=== PATIENT | female | born 2000 | race Caucasian/White ===

== ENCOUNTER 2019-08-18 14:59 | Outpatient (CLI) | payer OTHER, SELFPAY ==
--- NOTE | 2019-08-18 15:12 | XR_ITS ---
WS: [id number] XR foot LT min 3V* [id number] REASON FOR EXAM: LEFT FOOT PAIN FINDINGS: Mild hallux valgus changes. Line the remaining phalanges metatarsals and tarsals are normal . The calcaneus shows no abnormality . XR/XR foot LT min 3V* [id number] IMPRESSION: Hallux valgus changes.
== END 2019-08-18 15:00 | disposition home or self-care (01) ==
LOC: RAD 15:05
PROVIDERS: PCP Family Medicine; Visit Provider Nurse Practitioner Family
DX: M79.672 Pain in left foot (principal)
CPT/HCPCS: 73630

== ENCOUNTER → 2019-09-08 14:21 | Outpatient (BNVA) | payer OTHER, SELFPAY | PROVIDERS: PCP Family Medicine; Referring Provider Family Medicine; Visit Provider Podiatrist Foot & Ankle Surgery | DX: M79.672 Pain in left foot (principal) | CPT/HCPCS: 73630 ==

== ENCOUNTER → 2020-12-27 16:00 | Outpatient (BNVA) | payer OTHER, SELFPAY | PROVIDERS: PCP Family Medicine; Visit Provider Nurse Practitioner Women's Health | DX: Z01.419 Encounter for gynecological examination (general) (routine) without abnormal findings (principal); Z11.3 Encounter for screening for infections with a predominantly sexual mode of transmission; N92.6 Irregular menstruation, unspecified | CPT/HCPCS: 87491; 87591; 87661; 88175 ==

== ENCOUNTER 2021-03-09 16:37 | Emergency (ER) | payer OTHER, SELFPAY ==
--- NOTE | 2021-03-09 16:38 | W.ED.GENADLT ---
HPI - General Adult General: Chief complaint: Wound/Laceration Stated complaint: BLEEDING POST OP Time Seen by Provider: 03/09/21 16:38 History of Present Illness: HPI narrative: Ms Beal is a 20-year-old without significant past medical history who presents to the emergency department due to postoperative concern. 2 days ago she underwent tonsillectomy, expected postoperative course however earlier today started tasting blood and noticed mild amount of blood-tinged sputum. No significant emesis or massive bleed. Mild generalized malaise though improved with medication. No other signal change to health, exacerbating, or relieving factors. Review of Systems General: Reports: 10 or more systems reviewed and unremarkable except in HPI and below PFSH ED PFSH: Medical History No pertinent past medical history neg dx- htn,dm,thyroid,dvt/pe PCP: Dr. Brown Surgical History [place] teeth removed Family History Father Hypertension Family/Other Cancer MGGAunt Denies family history of Diabetes Family history of premature coronary artery disease Stroke Social History Smoking and tobacco status: never smoked Physical Exam Narrative: EXAM NARRATIVE: GENERAL/CONSTITUTIONAL - well-appearing. Nontoxic Eyes - PERRL, no conjunctival injection ENMT - Limited evaluation of posterior pharynx, no obvious bleeding. Moist mucous membranes NECK - trachea midline CARDIOVASCULAR - regular rate and rhythm. Normal peripheral perfusion RESPIRATORY -clear to auscultation bilaterally. ABDOMEN/GI - Nontender/Nondistended. MSK - Extremities without obvious deformity or tenderness to palpation SKIN - Warm, Dry NEURO - alert and appropriately oriented. Moves all extremities equally. Course ED course: - Patient was seen and evaluated by me at bedside -Vital signs obtained - Initial evaluation notable for clear sputum, no acute distress - evaluated by Dr Brink at bedside, cautery performed though no significant bleeding noted. - Given Dr. Brink's recommendations in conjugation with clinical exam including no active bleeding after cautery and normal vital signs no additional imaging warranted at this time. - Upon serial reexamination after treatment the patient was improved - The results of ED evaluation were discussed with the patient including prescriptions and/or symptomatic cares (if applicable) including appropriate and responsible use, followup plan, and return precautions. The patient verbalized understanding and felt safe for discharge. - Patient discharged in satisfactory condition. Vital Signs: Vital signs: Vital Signs Temperature 98.5 F 03/09/21 16:40 Pulse Rate 87 03/09/21 16:55 Respiratory Rate 17 03/09/21 16:55 Blood Pressure 140/81 03/09/21 16:55 Pulse Oximetry 98 03/09/21 16:55 MDM - General Adult Medical Records: Attestation: I reviewed the patient's medical records. Lab Data: Attestation: I reviewed the patient's lab results. Discharge Plan Discharge Patient Disposition: Home Clinical Impression: Status post tonsillectomy, Post-op bleeding Condition: Stable Prescriptions: No Action levonorg-eth estrad triphasic [Enpresse] 50-30 (6)/75-40 (5)/125-30(10) tablet 1 tab PO DAILY Qty: 84 RF: 3 amoxicillin-pot clavulanate 875-125 mg tablet RF: 0 amoxicillin 500 mg capsule RF: 0 Discharge Orders: Discharge ED (Routine); Ordered 03/09/21 Ordered By: Vipul Gutierrez Referrals: Andrez Brown, DO [Primary Care Provider] - Discharge Activity: Limit activity as instructed Patient Instructions: Tonsillectomy (DC) Activity Restrictions/Additional Instructions: Thank you for visiting the emergency department. You were seen and evaluated for bleeding post tonsillectomy. This was evaluated by Dr. Brink and treated. Based on his evaluation and ED evaluation you do not require inpatient management at this time. I will include generalized guidelines for post tonsillectomy however please follow all directions given by Dr Brink. Return to the emergency department for recurrent bleeding, lightheadedness, dizziness, inability to tolerate oral intake, uncontrolled pain, or anything else that you are concerned about feel needs emergency department evaluation. Coding Level of Care Code ED Correctional Officer for Nora Anna
[2021-03-09 16:40] VITALS: BP 140/81; PULSE 82; RESP 18; TEMP 36.9; O2SAT 98; BMI 22.1
--- NOTE | 2021-03-09 16:46 | PC.NURSE ---
Tonsilectomy on 03/07/[address] Brink. [place] bleeding in throat. Dr Brink requested pt come to the ER
--- NOTE | 2021-03-09 16:47 | PM.CONSULT ---
Providers/Reason For Consult Consulting Physician/Specialty*: Blake Brink MD Otolaryngology, Head & Neck Surgery Reason for Consult*: Post tonsillectomyu bleeding Primary Care Provider: Andrez Brown DO History of Present Illness History of Present Illness Juan Jose Beal is a 20 year old female who is POD #2 s/p bilateral tonsillectomy for recurrent tonsillitis. The patient noted the taste of blood in her mouth earlier today, and contacted me for advice. She presents to the [facility] ER for evaluation. The patient has normal post op pain, but is o/w without c/o. Review of Systems General: Reports: 10 or more systems reviewed and unremarkable except in HPI and below Meds/Allergies Home Medications and Allergies Home Medications Medication Instructions Recorded Confirmed Last Taken Type naproxen 500 mg tablet 500 mg PO BID 09/08/19 12/27/20 Unknown History l.norgest-eth.estradiol triphasic 1 tab PO DAILY #84 tab 12/27/20 12/27/20 Unknown Rx 50-30 (6)/75-40(5)/125-30(10) tablet Allergies Allergy/AdvReac Type Severity Reaction Status Date / Time No Known Allergies Allergy Unverified 03/09/21 16:40 PFSH Acute PFSH: Medical History No pertinent past medical history neg dx- htn,dm,thyroid,dvt/pe PCP: Dr. Brown Surgical History [place] teeth removed Family History Father Hypertension Family/Other Cancer MGGAunt Denies family history of Diabetes Family history of premature coronary artery disease Stroke Social History Smoking and tobacco status: never smoked Vitals/I&O/Wt Last Vital Signs Temp 98.5 F 03/09/21 16:40 Pulse 82 03/09/21 16:40 Resp 18 03/09/21 16:40 BP 140/81 03/09/21 16:40 Pulse Ox 98 03/09/21 16:40 Weight last 48 hrs Weight 68.039 kg Physical Exam Const: COMMON NORMALS: no acute distress and patient oriented x3 HENMT: COMMON NORMALS: normocephalic, atraumatic and hearing grossly normal bilaterally HEAD & SCALP: normocephalic and atraumatic FACE & SINUS: normal facial exam TEETH & GINGIVA: Yes other (Normal post tonsillectomy exam without noted bleeding bilaterally.) Eye: COMMON NORMALS: EOMs intact bilaterally, conjunctivae normal and no scleral icterus CONJUNCTIVA: Yes conjunctivae normal Neuro: COMMON NORMALS: patient oriented x3 A&P Additional A&P Information Impression: 20 yo wf who is POD #2 s/p bilateral tonsillectomy with mild post tonsillectomy bleeding Plan: - The patient is to continue her previously described post tonsillectomy care - I performed AgN03 cautery of the patient's right tonsillar fossa - Encourage oral fluid intake - F/U in Dr. Brink's office next week - Contact Dr. Brink for any other problems Consult Attestations Medical Necessity Statement: I was contacted for evaluation of the patient in the ER for post tonsillectomy bleeding Procedures Procedure Narrative Verbal informed consent was obtained; the patient's oral cavity was sprayed with Hurricaine spray, and the right tonsillar fossa was treated with AgN03 since this was the side she felt bleeding from; the patient tolerated the procedure well, and there were no complications. Coding Level of Care Code Acute Embossing Machine Operator Helper for Nora Anna
[2021-03-09 16:55] VITALS: BP 140/81; PULSE 87; RESP 17; O2SAT 98
== END 2021-03-09 16:58 | disposition home or self-care (01) ==
PROVIDERS: Emergency Provider Emergency Medicine; PCP Family Medicine
DX: K91.840 Postprocedural hemorrhage of a digestive system organ or structure following a digestive system procedure (principal)
CPT/HCPCS: 12345; 99282

== ENCOUNTER 2021-03-12 22:59 | Emergency (ER) | payer OTHER, SELFPAY ==
--- NOTE | 2021-03-12 23:00 | XRR_ITS ---
PROCEDURE INFORMATION: Exam: XR Chest Exam date and time: 03/12/2021 11:00 PM Age: 20 years old Clinical indication: Cough; Additional info: Coughing up blood after tonsillectomy on 03/07 TECHNIQUE: Imaging protocol: XR of the chest. Views: 1 view. COMPARISON: CR Thoracic Spine 3+ views* [id number] 08/26/2018 6:08 PM FINDINGS: Lungs: Unremarkable. No consolidation. Pleural spaces: Unremarkable. No pleural effusion. No pneumothorax. Heart/Mediastinum: Unremarkable. No cardiomegaly. Bones/joints: Unremarkable. XR/XR chest 1V portable [id number] IMPRESSION: No acute findings.
[2021-03-12 23:02] VITALS: BP 129/88; PULSE 121; RESP 21; TEMP 36.8; O2SAT 98; BMI 23.3
--- NOTE | 2021-03-12 23:19 | ED_ITS ---
Documented by User: EDGAR Lofton 03/13/21 00:44 HPI - Neck Pain/Injury General: Chief Complaint: Neck Pain/Injury Stated Complaint: coughing up blood post surgery Time Seen by Provider: 03/12/21 23:09 History of Present Illness: HPI Narrative: Patient is a 20-year-old female comes to the ED with post tonsillectomy bleeding. Patient had tonsillectomy done back on March 07. She was seen here in the ED on March [address] Rajput came and saw patient she was cleared stable for discharge home. Tonight she woke up and had some bleeding on the right side of her throat. Pain is minimal. Denies any fever, chills or vomiting. While here in the ED she feels like the bleeding has stopped. Associated symptoms: Denies headache(s) or nausea Review of Systems Const: Denies: fever(s), chills or fatigue Eyes: Denies: change in vision or eye discomfort ENMT: Reports: other (Post tonsillectomy bleeding); Denies: throat pain, odynophagia, nasal discharge or nasal congestion Card: Denies: chest pain, palpitations, edema, swelling of feet/ankles, dyspnea on exertion or orthopnea Resp: Denies: dyspnea, productive cough or non-productive cough GI: Denies: abdominal pain, nausea, vomiting, diarrhea, constipation or hematochezia : Denies: flank pain, dysuria or hematuria Musc: Denies: neck pain, back pain or extremity swelling Skin/Breast: Denies: rash or new lesions Neuro: Denies: headache(s), numbness in extremities or weakness in extremities PFS ED PFSH: Medical History No pertinent past medical history neg dx- htn,dm,thyroid,dvt/pe PCP: Dr. Brown Surgical History [place] teeth removed Family History Father Hypertension Family/Other Cancer MGGAunt Denies family history of Diabetes Family history of premature coronary artery disease Stroke Social History Smoking and tobacco status: never smoked Female Reproductive History: Date of last menstrual period: 02/15/21 Physical Exam Const: COMMON NORMALS: no acute distress, patient oriented x3, healthy appearing and alert GENERAL APPEARANCE: cooperative and comfortable HENMT: COMMON NORMALS: normocephalic HEAD & SCALP: normocephalic MOUTH: Normal oral and palatal mucosa present THROAT: posterior oropharynx normal and uvula midline OTHER: Status post tonsillectomy?right tonsil has blood clot present. No other active bleeding noted. Neck/C-Spine: COMMON NORMALS: supple GENERAL: Yes normal visual inspection Resp: COMMON NORMALS: normal respiratory effort, No retractions, No use of accessory muscles and clear to auscultation bilaterally AUSCULTATION: clear to auscultation bilaterally Cardio: COMMON NORMALS: regular rate, regular rhythm, S1 normal heart sound present, S2 normal heart sound present, No gallops present (Cardio), No clicks present (Cardio), No murmurs present (Cardio) and Peripheral pulses 2+ throughout RATE: regular rate RHYTHM: regular rhythm HEART SOUNDS: S1 normal heart sound present and S2 normal heart sound present PERIPHERAL PULSES: Peripheral pulses 2+ throughout GI: COMMON NORMALS: Normal to inspection, nondistended, normoactive bowel sounds present, Soft to palpation, non-tender and no masses PALPATION: Yes Soft to palpation : COMMON NORMALS: Yes no CVA tenderness BLADDER/KIDNEY EXAM: Yes no CVA tenderness Back/Pelvis: COMMON NORMALS: no CVA tenderness Neuro: COMMON NORMALS: patient oriented x3 and moves all extremities SEN SORIUM/ORIENTATION: Yes alert Course Consultations: Consultation #1: I contacted Dr. Rajput the ENT on-call and he also performed patient's tonsillectomy back on March 07. I told him that patient had a clot on the right tonsillar region. He was going to come in to the ED to see patient and evaluate them. Time: 23:35 Vital Signs: Vital signs: Vital Signs Temperature 98.2 F 03/12/21 23:02 Pulse Rate 121 H 03/12/21 23:02 Respiratory Rate 17 03/13/21 00:40 Blood Pressure 129/88 03/12/21 23:02 Pulse Oximetry 98 03/12/21 23:02 MDM - Neck Pain/Injury Lab Data: Attestation: I reviewed the patient's lab results. Labs: Lab Results 03/12/21 03/12/21 23:30 23:30 WBC 6.1 10^3/uL 10^3/ uL (4.0-10.0) RBC 4.93 10^6/uL 10^6 /uL (4.1-5.3) Hgb 14.9 g/dL g/dL (11.5-15.3) Hct 42.3 % % (37.0-47.0) MCV 85.8 fl fl (81-99) MCH 30.2 pg pg (28.0-34.0) MCHC 35.2 g/dL g/dL (30.0-36.0) RDW 13.4 % % (12.1-15.1) Plt Count 299 10^3/cmm 10^3 /cmm (130-400) MPV 9.9 fL fL (7.4-10.4) Neut % (Auto) 54.4 % % Lymph % (Auto) 36.0 % % Upson % (Auto) 8.4 % % Eos % (Auto) 0.5 % % Baso % (Auto) 0.5 % % Neut # (Auto) 3.30 10^3/uL 10^3 /uL (1.8-7.7) Lymph # (Auto) 2.2 10^3/uL 10^3/ uL (0.8-4.8) Upson # (Auto) 0.5 10^3/uL 10^3/ uL (0.2-0.9) Eos # (Auto) 0.0 10^3/uL 10^3/ uL (0.0-0.8) Baso # (Auto) 0.0 10^3/uL 10^3/ uL (0.0-0.1) Nucleated RBC % (a uto) 0 % % Nucleated RBCs # 0.0 /100WBC /100W BC Sodium Cancelled Potassium Cancelled Chloride Cancelled Carbon Dioxide Cancelled Anion Gap Cancelled BUN Cancelled Creatinine Cancelled GFR Calculation Cancelled Glucose Cancelled Calculated Osmolal ity Cancelled Calcium Cancelled Total Bilirubin Cancelled AST Cancelled ALT Cancelled Alkaline Phosphata se Cancelled Total Protein Cancelled Albumin Cancelled Globulin Cancelled Imaging Data^: CXR: Attestation: I personally reviewed and interpreted this imaging study as follows: Radiologist's impression: [facility] [id number] [place], [place] [id number] ReportSigned Patient: Juan Jose Beal AUnit #: [id number]: 2000Acct#:[id number]/Sex: 20 / FADM Date: 03/12/21Loc: ERRoom/Bed:Attending Dr: Ordering Provider/Ordering MD: Navid Mason MD Date of Service: 03/12/21 Procedure(s): XR chest 1V portable [id number] Accession Number(s): [id number] Report Number: [id number] PROCEDURE INFORMATION: Exam: XR Chest Exam date and time: 03/12/2021 11:00 PM Age: 20 years old Clinical indication: Cough; Additional info: Coughing up blood after tonsillectomy on 03/07 TECHNIQUE: Imaging protocol: XR of the chest. Views: 1 view. COMPARISON: CR Thoracic Spine 3+ views* [id number] 08/26/2018 6:08 PM FINDINGS: Lungs: Unremarkable. No consolidation. Pleural spaces: Unremarkable. No pleural effusion. No pneumothorax. Heart/Mediastinum: Unremarkable. No cardiomegaly. Bones/joints: Unremarkable. XR/XR chest 1V portable [id number] IMPRESSION: No acute findings. Dictated By:Juan Becerril MDSigned By:Juan Becerril MDSigned Date/Time:03/13/21 0009DD/ 2300 Discharge Plan Discharge Patient Disposition: Home Clinical Impression: Post-tonsillectomy hemorrhage Condition: Stable Prescriptions: No Action naproxen 500 mg tablet 500 mg PO BID RF: 0 levonorg-eth estrad triphasic [Enpresse] 50-30 (6)/75-40 (5)/125-30(10) tablet 1 tab PO DAILY Qty: 84 RF: 3 Discharge Orders: Discharge ED (Routine); Ordered 03/13/21 Ordered By: Navid Mason Referrals: Blake Brink MD [Physician] - 1-3 days Andrez Brown DO [Primary Care Provider] - Discharge Diet: Advance as tolerated Discharge Activity: Resume usual activity Patient Instructions: Tonsillectomy (DC) Coding Level of Care Code ED Hemmer Lockstitch for Chg Fwd Exam Comprehensive Documented by User: Naivd Mason MD 03/13/21 00:37 HPI - Neck Pain/Injury General: Chief Complaint: Neck Pain/Injury Stated Complaint: coughing up blood post surgery Time Seen by Provider: 03/12/21 23:09 PFSH ED PFSH: Medical History No pertinent past medical history neg dx- htn,dm,thyroid,dvt/pe PCP: Dr. Brown Surgical History [place] teeth removed Family History Father Hypertension Family/Other Cancer MGGAunt Denies family history of Diabetes Family history of premature coronary artery disease Stroke Social History Smoking and tobacco status: never smoked Course Vital Signs: Vital signs: Vital Signs Temperature 98.2 F 03/12/21 23:02 Pulse Rate 121 H 03/12/21 23:02 Respiratory Rate 17 03/13/21 00:40 Blood Pressure 129/88 03/12/21 23:02 Pulse Oximetry 98 03/12/21 23:02 MDM - Neck Pain/Injury MDM Narrative: Medical decision making narrative: Patient was seen in the ER by Dr. Rajput he had cauterized the bleeding states she is stable for discharge I went and evaluated her again bleeding has stopped she has follow-up with him on Friday she is to follow-up as scheduled return if she has any more bleeding she understands agrees to plan. Lab Data: Labs: Lab Results 03/12/21 03/12/21 23:30 23:30 WBC 6.1 10^3/uL 10^3/ uL (4.0-10.0) RBC 4.93 10^6/uL 10^6 /uL (4.1-5.3) Hgb 14.9 g/dL g/dL (11.5-15.3) Hct 42.3 % % (37.0-47.0) MCV 85.8 fl fl (81-99) MCH 30.2 pg pg (28.0-34.0) MCHC 35.2 g/dL g/dL (30.0-36.0) RDW 13.4 % % (12.1-15.1) Plt Count 299 10^3/cmm 10^3 /cmm (130-400) MPV 9.9 fL fL (7.4-10.4) Neut % (Auto) 54.4 % % Lymph % (Auto) 36.0 % % Upson % (Auto) 8.4 % % Eos % (Auto) 0.5 % % Baso % (Auto) 0.5 % % Neut # (Auto) 3.30 10^3/uL 10^3 /uL (1.8-7.7) Lymph # (Auto) 2.2 10^3/uL 10^3/ uL (0.8-4.8) Upson # (Auto) 0.5 10^3/uL 10^3/ uL (0.2-0.9) Eos # (Auto) 0.0 10^3/uL 10^3/ uL (0.0-0.8) Baso # (Auto) 0.0 10^3/uL 10^3/ uL (0.0-0.1) Nucleated RBC % (a uto) 0 % % Nucleated RBCs # 0.0 /100WBC /100W BC Sodium Cancelled Potassium Cancelled Chloride Cancelled Carbon Dioxide Cancelled Anion Gap Cancelled BUN Cancelled Creatinine Cancelled GFR Calculation Cancelled Glucose Cancelled Calculated Osmolal ity Cancelled Calcium Cancelled Total Bilirubin Cancelled AST Cancelled ALT Cancelled Alkaline Phosphata se Cancelled Total Protein Cancelled Albumin Cancelled Globulin Cancelled Discharge Plan Discharge Patient Disposition: Home Clinical Impression: Post-tonsillectomy hemorrhage Condition: Stable Prescriptions: No Action naproxen 500 mg tablet 500 mg PO BID RF: 0 levonorg-eth estrad triphasic [Enpresse] 50-30 (6)/75-40 (5)/125-30(10) tablet 1 tab PO DAILY Qty: 84 RF: 3 Discharge Orders: Discharge ED (Routine); Ordered 03/13/21 Ordered By: Navid Mason Referrals: Blake Brink MD [Physician] - 1-3 days Andrez Brown DO [Primary Care Provider] - Discharge Diet: Advance as tolerated Discharge Activity: Resume usual activity Patient Instructions: Tonsillectomy (DC) Coding Level of Care Code ED Hemmer Lockstitch for Chg Fwd Exam Comprehensive
[2021-03-12 23:41] LABS: Basophils % 0.5 %; Eosinophils % 0.5 %; Hematocrit 42.3 % (37.0-47.0); Hemoglobin 14.9 g/dL (11.5-15.3); Lymphocytes # 2.2 10^3/uL (0.8-4.8); Mean Corpuscular HGB Conc 35.2 g/dL (30.0-36.0); Mean Corpuscular Hemoglobin 30.2 pg (28.0-34.0); Mean Corpuscular Volume 85.8 fl (81-99); Mean Platelet Volume 9.9 fL (7.4-10.4); Monocytes # 0.5 10^3/uL (0.2-0.9); Monocytes % 8.4 %; Neutrophils % 54.4 %; Nucleated Red Blood Cells % 0 %; Platelet Count 299 10^3/cmm (130-400); Red Blood Count 4.93 10^6/uL (4.1-5.3); Red Cell Distribution Width 13.4 % (12.1-15.1); White Blood Count 6.1 10^3/uL (4.0-10.0)
--- NOTE | 2021-03-13 00:10 | PM.CONSULT ---
Providers/Reason For Consult Consulting Physician/Specialty*: Blake Brink MD Otolaryngology, Head & Neck Surgery Reason for Consult*: Post tonsillectomy bleeding Requesting Physician: ER Attending Physician: Blake Brink MD Primary Care Provider: Andrez Brown DO History of Present Illness History of Present Illness Juan Jose Beal is a 20 year old female who is POD #5 s/p bilateral tonsillectomy who was well until one hour age when she developed spontaneous oral bleeding. The patient presents to the ER for treatment. Review of Systems General: Reports: 10 or more systems reviewed and unremarkable except in HPI and below Meds/Allergies Home Medications and Allergies Home Medications Medication Instructions Recorded Confirmed Last Taken Type naproxen 500 mg tablet 500 mg PO BID 09/08/19 12/27/20 Unknown History l.norgest-eth.estradiol triphasic 1 tab PO DAILY #84 tab 12/27/20 12/27/20 Unknown Rx 50-30 (6)/75-40(5)/125-30(10) tablet Allergies Allergy/AdvReac Type Severity Reaction Status Date / Time No Known Allergies Allergy Unverified 03/09/21 16:40 PFSH Acute PFSH: Medical History No pertinent past medical history neg dx- htn,dm,thyroid,dvt/pe PCP: Dr. Brown Surgical History [place] teeth removed Family History Father Hypertension Family/Other Cancer MGGAunt Denies family history of Diabetes Family history of premature coronary artery disease Stroke Social History Smoking and tobacco status: never smoked Female Reproductive History: Date of last menstrual period: 02/15/21 Vitals/I&O/Wt Last Vital Signs Temp 98.2 F 03/12/21 23:02 Pulse 121 H 03/12/21 23:02 Resp 21 H 03/12/21 23:02 BP 129/88 03/12/21 23:02 Pulse Ox 98 03/12/21 23:02 Weight last 48 hrs Weight 65.771 kg Physical Exam Const: COMMON NORMALS: no acute distress, average body habitus and patient oriented x3 GENERAL APPEARANCE: cooperative and well developed HENMT: COMMON NORMALS: normocephalic and atraumatic HEAD & SCALP: normocephalic and atraumatic MOUTH: lip normal, tongue normal and other (There is a large organized clot in the right tonsillar fossa, but bleeding.) Eye: COMMON NORMALS: Equal, round and reactive pupils present, EOMs intact bilaterally, conjunctivae normal and no scleral icterus CONJUNCTIVA: Yes conjunctivae normal PUPIL: Yes Equal, round and reactive pupils present Resp: COMMON NORMALS: normal respiratory effort, No use of accessory muscles and clear to auscultation bilaterally AUSCULTATION: clear to auscultation bilaterally Cardio: COMMON NORMALS: regular rate and regular rhythm RATE: regular rate RHYTHM: regular rhythm Neuro: COMMON NORMALS: patient oriented x3 Psych: COMMON NORMALS: mental status grossly normal Skin: COMMON NORMALS: turgor normal GENERAL SKIN EXAM: turgor normal A&P Additional A&P Information Impression: 20 yo wf who is POD #5 s/p bilateral tonsillectomy with right post tonsillectomy bleeding - now controlled Plan: - Hydrocodone/Acetaminaphen (7.5/325)/15mL Elxer: Take 15 mL po Q5 hours prn pain, #400mL, NR - Avoid NSAIDs for 3 weeks - Increase po fluid intake with Gatorade, Allsport, or Powerade - Notify Dr. Brink for any recurrent bleeding or other problems - F/U in Dr. Brink's office in one week Consult Attestations Medical Necessity Statement: I was consulted for management of post tonsillectomy bleeding Procedures Procedure Narrative Verbal informed consent was obtained from the patient; the patient's mouth was sprayed with Hurricaine spray, and the clot in the right tonsillar fossa was dislodged with suction; the right tonsillar fossa was cauterized with AgN03; the patient was observed for 30 minutes without recurrence of bleeding; there were no complications. Coding Level of Care Code Acute Track Repair Worker for Nora Anna
[2021-03-13] MEDS: ondansetron 2 mg/ML SDV 2 mL 4 MG IVP (00:39)
[2021-03-13 00:40] VITALS: RESP 17
[2021-03-13] MEDS: morphine 4 mg/mL SDV 1 mL IVP (00:40)
[2021-03-13 00:51] VITALS: BP 122/78; PULSE 98; RESP 16; O2SAT 97
== END 2021-03-13 00:53 | disposition home or self-care (01) ==
PROVIDERS: Emergency Provider Emergency Medicine; PCP Family Medicine
DX: K91.840 Postprocedural hemorrhage of a digestive system organ or structure following a digestive system procedure (principal)
CPT/HCPCS: 12345; 71045; 80053; 85025; 96374; 96375; 99283; J2270; J2405

== ENCOUNTER 2021-03-13 01:39 | Emergency (ER) | payer OTHER, SELFPAY ==
[2021-03-13 01:42] VITALS: BP 132/90; PULSE 94; RESP 17; TEMP 36.8; O2SAT 98; BMI 21.4
--- NOTE | 2021-03-13 02:28 | W.ED.NECK ---
HPI - Neck Pain/Injury General: Chief Complaint: Neck Pain/Injury Stated Complaint: Bleeding from post surgery Time Seen by Provider: 03/13/21 01:44 History of Present Illness: HPI Narrative: Patient is a 20-year-old female comes to the ED with post tonsillectomy bleeding. Patient was seen here in the ED several hours ago for same complaint. Dr. Rajput came in and cauterized bleeding that was controlled. Patient discharged home she says she was lying down and then felt some bleeding and spit out to mouthful the red blood. Denies any acute pain. Here in the ED she says her bleeding seems to have stopped and she has not spit out any more blood. Associated symptoms: Denies headache(s) or nausea Review of Systems Const: Denies: fever(s), chills or fatigue Eyes: Denies: change in vision or eye discomfort ENMT: Reports: other (Post tonsillectomy bleeding, post tonsillectomy pain); Denies: throat pain, odynophagia, nasal discharge or nasal congestion Card: Denies: chest pain, palpitations, edema, swelling of feet/ankles, dyspnea on exertion or orthopnea Resp: Denies: dyspnea, productive cough or non-productive cough GI: Denies: abdominal pain, nausea, vomiting, diarrhea, constipation or hematochezia : Denies: flank pain, dysuria or hematuria Musc: Denies: neck pain, back pain or extremity swelling Skin/Breast: Denies: rash or new lesions Neuro: Denies: headache(s), numbness in extremities or weakness in extremities PFS ED PFSH: Medical History No pertinent past medical history neg dx- htn,dm,thyroid,dvt/pe PCP: Dr. Brown Surgical History [place] teeth removed Family History Father Hypertension Family/Other Cancer MGGAunt Denies family history of Diabetes Family history of premature coronary artery disease Stroke Social History Smoking and tobacco status: never smoked Female Reproductive History: Date of last menstrual period: 02/15/21 Physical Exam Const: COMMON NORMALS: patient oriented x3, healthy appearing and alert GENERAL APPEARANCE: cooperative and comfortable HENMT: COMMON NORMALS: normocephalic HEAD & SCALP: normocephalic MOUTH: Normal oral and palatal mucosa present THROAT: posterior oropharynx normal and uvula midline OTHER: Post tonsillectomy-grade tissue noted bilaterally. No blood clots or active bleeding seen. Neck/C-Spine: COMMON NORMALS: supple GENERAL: Yes normal visual inspection Resp: COMMON NORMALS: normal respiratory effort, No retractions, No use of accessory muscles and clear to auscultation bilaterally AUSCULTATION: clear to auscultation bilaterally Cardio: COMMON NORMALS: regular rate, regular rhythm, S1 normal heart sound present, S2 normal heart sound present, No gallops present (Cardio), No clicks present (Cardio), No murmurs present (Cardio) and Peripheral pulses 2+ throughout RATE: regular rate RHYTHM: regular rhythm HEART SOUNDS: S1 normal heart sound present and S2 normal heart sound present PERIPHERAL PULSES: Peripheral pulses 2+ throughout GI: COMMON NORMALS: Normal to inspection, nondistended, normoactive bowel sounds present, Soft to palpation, non-tender and no masses PALPATION: Yes Soft to palpation : COMMON NORMALS: Yes no CVA tenderness BLADDER/KIDNEY EXAM: Yes no CVA tenderness Back/Pelvis: COMMON NORMALS: no CVA tenderness Extremity: COMMON NORMALS: normal to inspection Neuro: COMMON NORMALS: patient oriented x3 and moves all extremities SENSORIUM/ORIENTATION: Yes alert Skin: GENERAL SKIN EXAM: dry skin Course Reevaluation(s): Reevaluation #1: Reevaluation of patient's posterior oropharynx showed no active bleeding or blood clots seen. Patient says she just is having some post pain currently. She denies feeling any current bleeding or coughing up blood since patient returned to the ED. Time: 02:44 Vital Signs: Vital signs: Vital Signs Temperature 98.2 F 03/13/21 01:42 Pulse Rate 94 03/13/21 01:42 Respiratory Rate 17 03/13/21 01:42 Blood Pressure 132/90 03/13/21 01:42 Pulse Oximetry 98 03/13/21 01:42 MDM - Neck Pain/Injury MDM Narrative: Medical decision making narrative: Patient is a 20-year-old female comes to the ED with complaint of bleeding post tonsillectomy. Bleeding resolved before she returned to the ED. She was seen here a couple hours ago for same complaint and Dr. Rajput came in and cauterized to control bleeding here in the ED. Exam shows no clots or active bleeding of the posterior oropharynx. My watch patient for another 20 minutes and rechecked patient for bleeding. She still had no active bleeding upon exam and she complained of no active bleeding. She was given a dose of liquid hydrocodone for pain and discharged home. She was told to contact Dr. Rajput's office in the morning for follow-up. Return to ED precautions given. Patient understood agree with plan. Discharge Plan Discharge Patient Disposition: Home Clinical Impression: Status post tonsillectomy Condition: Stable Prescriptions: No Action naproxen 500 mg tablet 500 mg PO BID RF: 0 levonorg-eth estrad triphasic [Enpresse] 50-30 (6)/75-40 (5)/125-30(10) tablet 1 tab PO DAILY Qty: 84 RF: 3 Discharge Orders: Discharge ED (Routine); Ordered 03/13/21 Ordered By: Cruz Sarkar Referrals: Andrez Brown, [Primary Care Provider] - Discharge Diet: Regular Discharge Activity: Increase activity as tolerated Patient Instructions: Tonsillectomy (DC) Activity Restrictions/Additional Instructions: Call Dr. Rajput's office tomorrow morning to discuss further evaluation. take medications as prescribed. Return to the ER or your medical provider if condition worsens. Please read and understand discharge instructions. Thank you for choosing [facility] for your healthcare needs today. Please realize this is an emergency room and that we are providing you with a medical screening exam and this may not be complete and all inclusive of all the testing and or work up that you may need to determine your ailment or severity of your illness. It is very important that you follow up as instructed or that you return to the Emergency Department should you have concerns or if your condition changes or worsens in any way. Coding Level of Care Code ED Fancy Packer for Nora Fwfeliciano Exam Comprehensive
[2021-03-13] MEDS: HYDROcodone-APAP 7.5-325 mg/15 mL UDC PO (02:49)
[2021-03-13 02:55] VITALS: RESP 17
== END 2021-03-13 02:56 | disposition home or self-care (01) ==
PROVIDERS: Emergency Provider Physician Assistant; PCP Family Medicine
DX: Z98.890 Other specified postprocedural states (principal)
CPT/HCPCS: 99283

== ENCOUNTER 2021-03-13 18:10 | Observation (INO) | payer OTHER, SELFPAY ==
[2021-03-13] VITALS (10 sets, daily range): BP systolic 112–149; BP diastolic 68–94; PULSE 68–111; RESP 16–20; TEMP 36.4–36.9; O2SAT 93–99; BMI 21.4
--- NOTE | 2021-03-13 19:26 | W.ED.GENADLT ---
HPI - General Adult General: Chief complaint: General Medical Stated complaint: tonsils out 03/07 and now bleeding Time Seen by Provider: 03/13/21 18:52 Source: patient Mode of arrival: ambulatory Limitations: no limitations History of Present Illness: HPI narrative: 20-year-old female who is post tonsillectomy 7 days ago. She has had difficulty with post tonsillectomy hemorrhage has been seen here couple times. She states that roughly 1 hour ago started having bleeding again and had about a cupful of hemorrhage at home 1 hour ago. Bleeding has slowed still has some slight bleeding denies any worsening improving factors. Associated symptoms: Deny chest pain, dyspnea, headache(s), nausea, rash or vomiting Review of Systems Const: Denies: fever(s), chills, body aches or change in appetite Eyes: Denies: blurry vision or eye discomfort ENMT: Denies: throat pain or dental pain Card: Denies: chest pain Resp: Denies: dyspnea GI: Denies: abdominal pain, nausea, vomiting or diarrhea : Denies: dysuria Musc: Denies: neck pain or back pain Skin/Breast: Denies: rash Neuro: Denies: headache(s) Psych: Denies: depression Bobby/Lymph: Denies: easy bruising All/Imm: Denies: urticaria PFSH ED PFSH: Medical History No pertinent past medical history neg dx- htn,dm,thyroid,dvt/pe PCP: Dr. Brown Surgical History [place] teeth removed Family History Father Hypertension Family/Other Cancer MGGAunt Denies family history of Diabetes Family history of premature coronary artery disease Stroke Social History Smoking and tobacco status: never smoked Female Reproductive History: Date of last menstrual period: 02/15/21 Physical Exam Const: COMMON NORMALS: no acute distress and patient oriented x3 HENMT: OTHER: Small area of active bleeding to left posterior post tonsillectomy no large amount of bleeding at this time no clot formation. Neck/C-Spine: COMMON NORMALS: supple Resp: COMMON NORMALS: normal respiratory effort, No retractions and No use of accessory muscles Cardio: COMMON NORMALS: regular rate RATE: regular rate Extremity: COMMON NORMALS: normal to inspection Neuro: COMMON NORMALS: patient oriented x3 Psych: COMMON NORMALS: mental status grossly normal Skin: COMMON NORMALS: no rashes or lesions noted GENERAL SKIN EXAM: no rashes or lesions noted Course Vital Signs: Vital signs: Vital Signs Pulse Rate 91 03/13/21 18:17 Respiratory Rate 20 H 03/13/21 19:56 Blood Pressure 131/94 03/13/21 18:17 Pulse Oximetry 97 03/13/21 19:56 MDM - General Adult MDM Narrative: Medical decision making narrative: Patient presents with a post tonsillectomy hemorrhage patient's been seen in the ER by Dr. Brink is planning on taking her back to the operating room at this time she has been stable while in the ER. Discharge Plan Discharge Patient Disposition: Admitted As Inpatient Clinical Impression: Post-tonsillectomy hemorrhage Condition: Stable Coding Level of Care Code ED Timber Management Assistant for [place]our[place] Fwd Exam Detailed
[2021-03-13] MEDS: ondansetron 2 mg/ML SDV 2 mL 4 MG IVP (19:56)
[2021-03-13] MEDS: morphine 4 mg/mL SDV 1 mL IVP (19:56)
[2021-03-13] MEDS: sodium chloride 0.9% 1,000 ML 999 ML IV (19:56)
--- NOTE | 2021-03-13 19:57 | P.HP_ITS ---
Providers/Chief Complaint Primary Care Provider: Andrez Brown DO Chief Complaint: tonsils out 03/07 and now bleeding History of Present Illness Juan Jose Beal is a 20 year old female who is POD #6 s/p bilateral tonsillectomy for recurrent tonsillitis who presents to the [facility] with oral bleeding. She was also treated for similar bleeding last night with AgN03, but developed recurrent bleeding tonight. The patient is o/w without c/o. Review of Systems General: Reports: 10 or more systems reviewed and unremarkable except in HPI and below Medications/Allergies Home Medications Medication Instructions Recorded Confirmed Last Taken Type naproxen 500 mg tablet 500 mg PO BID 09/08/19 12/27/20 Unknown History l.norgest-eth.estradiol triphasic 1 tab PO DAILY #84 tab 12/27/20 12/27/20 Unknown Rx 50-30 (6)/75-40(5)/125-30(10) tablet Allergies Allergy/AdvReac Type Severity Reaction Status Date / Time No Known Allergies Allergy Unverified 03/09/21 16:40 PFSH Acute PFSH: Medical History No pertinent past medical history neg dx- htn,dm,thyroid,dvt/pe PCP: Dr. Brown Surgical History [place] teeth removed Family History Father Hypertension Family/Other Cancer MGGAunt Denies family history of Diabetes Family history of premature coronary artery disease Stroke Social History Smoking and tobacco status: never smoked Female Reproductive History: Date of last menstrual period: 02/15/21 Vitals/I&O/Wt Last Vital Signs Pulse 91 03/13/21 18:17 Resp 16 03/13/21 18:17 BP 131/94 03/13/21 18:17 Pulse Ox 97 03/13/21 18:17 Weight last 48 hrs Weight 65.771 kg Physical Exam Const: COMMON NORMALS: no acute distress, average body habitus and patient oriented x3 HENMT: COMMON NORMALS: normocephalic, atraumatic, Normal external nose present and gingiva normal FACE & SINUS: normal facial exam NOSE: Normal external nose present MOUTH: Normal oral and palatal mucosa present and other (There is fresh blood in the tonsillar fossare, R > L, no active bleeding ) Eye: EYELID: eyelids normal CONJUNCTIVA: Yes conjunctivae normal SCLERA: sclerae normal Neck/C-Spine: GENERAL: Yes normal visual inspection and Yes trachea midline Resp: COMMON NORMALS: normal respiratory effort, No use of accessory muscles and clear to auscultation bilaterally Cardio: COMMON NORMALS: regular rate, regular rhythm and No murmurs present (Cardio) GI: COMMON NORMALS: Normal to inspection, nondistended, normoactive bowel sounds present Extremity: GENERAL: Yes normal exam except as noted Psych: COMMON NORMALS: mental status grossly normal Skin: COMMON NORMALS: turgor normal A&P Additional A&P Information Impression: 20 yo wf who is POD #6 with recurrent post tonsillectomy bleeding. Plan: Surgical control of post tonsillectomy bleeding under anesthesia. Risks and complications explained to the patient. Attestations Medical Necessity Statement*: The patient requires care of post tonsillectomy bleeding. Coding Level of Care Code Acute Data Analysis Manager for Nora Anna
--- NOTE | 2021-03-13 20:35 | P.ANESASSM_ITS ---
Pre-Anesthetic Assessment Pre-Anesthetic Assessment: Height/Weight: Height 1.75 m Weight 65.771 kg Pulse Resp BP Pulse Ox 91 20 H 131/94 97 03/13/21 18:17 03/13/21 19:56 03/13/21 18:17 03/13/21 19:56 Preop Diagnosis: Post-tonsillectomy bleed Proposed Procedure: Operation Date: 03/13/21 20:45 Proposed Procedures p Tonsillectomy Postop Bleed Control(Not Applicable) - Blake Brink MD Familial anesthetic complications: None Was Beta Rony taken within 24 hours: N/A Was Clonidine taken within 24 hours: N/A Last intake: > 8 hrs for solids, > 2 hours for liquids Social: Social History: No alcohol and No tobacco Comment: Vapes Exam: Pre-Anes Outpt Exam: alert, oriented x 3, clear to auscultation bilaterally and regular rate & rhythm Airway: MP: 2 Dentition: Full Additional comments: No bleeding/blood seen in oral cavity Anesthetic Plan: ASA status: 1E Anesthesia: General Other: Patient's bleed appears under control currently, not filling oral cavity, no signs of blood in oropharynx upon Mallampati exam. Patient appears without physical exam characteristics predictive of difficult airway other than presence of tonsillar bleed. Will proceed with RSI. Risk of > 500 ml blood loss (7ml/kg in children): No Meds/Allergies Current Medications: Current Medications Generic Name Dose Route Start Last Admin Trade Name Freq PRN Reason Stop Dose Admin Sodium Chloride 1,000 mls @ 999 m ls/hr 03/13/21 19:53 03/13/21 19:56 Sodium Chloride 0.9% IV 03/13/21 20:53 999 mls/hr .Q1H1M ONE Administration PFSH Anesthesia PFSH: Medical History No pertinent past medical history neg dx- htn,dm,thyroid,dvt/pe PCP: Dr. Brown Surgical History [place] teeth removed Family History Father Hypertension Family/Other Cancer MGGAunt Denies family history of Diabetes Family history of premature coronary artery disease Stroke Social History Smoking and tobacco status: never smoked Female Reproductive History: Date of last menstrual period: 02/15/21 Data Anesthesia Cardiac Studies: No Data to Display
[2021-03-13] MEDS: triamcinolone 40 mg/mL SDV IM (20:59)
[2021-03-13] MEDS: silver nitrate applicator 3 EACH TOPICAL (21:00)
--- NOTE | 2021-03-13 21:31 | P.OP_ITS ---
Operative Report Date of procedure: March 13, 2021 Pre-op Diagnosis: Post-tonsillectomy bleed Post-op diagnosis: same Post-op Findings: Bilateral tonsillar fossa bleeding Procedure Done: Surgical control of bilateral post tonsillectomy bleeding Implants: None Specimens removed/disposition: None Pathology: none sent Surgeon: Blake Brink Display Department Manager: Farida Juan Anesthesia: General Estimated blood loss (mL): 200 IV fluids (mL): 700 Complications: None Findings: Bilateral tonsillar fossa bleeding, right greater than left Condition: stable Disposition: observation Brief History: 20 yo wf who is POD #6 s/p bilateral tonsillectomy with new onset post tonsillectomy bleeding. The patient desires surgical therapy. Procedure: The patient was identified the preoperative holding area and was taken to the operating where she was placed on the operating table in supine position. Anesthesia was obtained with general endotracheal anesthesia and the table was then turned 90 degrees to the patient's left. A McIvor mouthgag was placed atraumatically in the patient's oral cavity and she was suspended the Kendra position. The patient had significant blood and blood clots in her mouth that were evacuated with suction. The oral cavity wounds were then inspected. The patient was found to have diffuse oozing from both tonsillar fossae bilaterally. The bleeding was controlled with a combination of suction cautery, bipolar cautery, and silver nitrate cautery. Once this was accomplished, the patient's oral cavity was irrigated with a copious amount normal saline and the wounds were inspected for hemostasis which found to be adequate. At this point an orogastric tube was passed into the patient's stomach and her stomach contents were evacuated. At this point the patient was taken off suspension, the mouthgag was atraumatically released and removed. The procedure was then terminated and control of the patient was returned to anesthesia where she underwent an uneventful reversal of anesthesia and extubation and was taken to the recovery room in stable condition. There were no operative or anesthetic complications.
[2021-03-13 21:45] LABS: Basophils % 0.7 %; Eosinophils % 0.2 %; Hematocrit 37.8 % (37.0-47.0); Hemoglobin 12.5 g/dL (11.5-15.3); Lymphocytes # 1.7 10^3/uL (0.8-4.8); Lymphocytes % 27.8 %; Mean Corpuscular HGB Conc 33.1 g/dL (30.0-36.0); Mean Corpuscular Hemoglobin 29.2 pg (28.0-34.0); Mean Corpuscular Volume 88.3 fl (81-99); Mean Platelet Volume 10.2 fL (7.4-10.4); Monocytes # 0.5 10^3/uL (0.2-0.9); Monocytes % 8.2 %; Neutrophils # 3.74 10^3/uL (1.8-7.7); Neutrophils % 62.9 %; Nucleated Red Blood Cells % 0 %; Platelet Count 300 10^3/cmm (130-400); Red Blood Count 4.28 10^6/uL (4.1-5.3); Red Cell Distribution Width 12.9 % (12.1-15.1); White Blood Count 5.9 10^3/uL (4.0-10.0)
--- NOTE | 2021-03-13 23:16 | PC.NURSE ---
Patient has been unable to eat much since her surgery on 03/07. Due to this she has lost 15 pounds.
[2021-03-13] MEDS: famotidine 20 mg/2 mL INJ IVP (23:44)
[2021-03-14] MEDS: lanolin oint 7 gm 1 APPLIC TOPICAL (00:17)
[2021-03-14] MEDS: HYDROcodone-acetaminophen 5-325 mg Tablet 1 TAB PO ×2 (01:30→08:06)
[2021-03-14] MEDS: lactated ringers 1,000 ML 100 ML IV (02:09)
[2021-03-14 04:00] VITALS: BP 116/68; PULSE 81; RESP 16; TEMP 36.6; O2SAT 94
--- NOTE | 2021-03-14 05:24 | P.PN_ITS ---
Subjective Subjective: Interval history: 20 yo wf who is POD #7 s/p bilateral tonsillectomy admitted last night after surgical control of post tonsillectomy bleeding. The patient is without c/o this morning. There has been no bleeding overnight by her report. Vitals/I&O/Wt Last Vital Signs Temp 97.8 F 03/14/21 04:00 Pulse 81 03/14/21 04:00 Resp 16 03/14/21 04:00 BP 116/68 03/14/21 04:00 Pulse Ox 94 03/14/21 04:00 03/13/21 03/13/21 03/14/21 14:59 22:59 06:59 Intake Total 700 / 700 Output Total 2 / 2 Balance 698 / 698 Weight last 48 hrs Weight 65.771 kg Weight 65.771 kg Physical Exam Const: COMMON NORMALS: no acute distress, average body habitus and patient oriented x3 HENMT: COMMON NORMALS: normocephalic and atraumatic HEAD & SCALP: normocephalic and atraumatic TEETH & GINGIVA: Yes other (No bleeding, tonsil fossae healing well.) Eye: COMMON NORMALS: conjunctivae normal and no scleral icterus CONJUNCTIVA: Yes conjunctivae normal Neck/C-Spine: COMMON NORMALS: no lymphadenopathy Resp: COMMON NORMALS: normal respiratory effort, No retractions and clear to auscultation bilaterally AUSCULTATION: clear to auscultation bilaterally Cardio: COMMON NORMALS: regular rate, regular rhythm and No murmurs present (Cardio) RATE: regular rate RHYTHM: regular rhythm GI: COMMON NORMALS: Normal to inspection, nondistended, normoactive bowel sounds present Extremity: COMMON NORMALS: normal to inspection Neuro: COMMON NORMALS: patient oriented x3 Data : 03/13/21 21:12 A&P Additional A&P Information Impression: 20 yo wf with post tonsillectomy bleeding now resolved Plan: - D/C to home - Soft food diet - Take pain medications as previously prescribed - Avoid NSAIDs for 3 weeks - F/U in Dr. Brink's office in one week - Contact Dr. Brink for any problems Attestations Medical Necessity Statement*: The patient was admitted for observation after surgical control of post tonsillectomy bleeding. Coding Level of Care Code Acute Research Epidemiologist for Nora Anna
[2021-03-14 06:25] VITALS: BP 118/77; PULSE 85; RESP 16; TEMP 36.5; O2SAT 97
[2021-03-14 08:45] VITALS: BP 118/77; PULSE 85; RESP 16; TEMP 36.5; O2SAT 97
== END 2021-03-14 08:48 | disposition home or self-care (01) ==
LOC: ER 20:17 → OR 20:21 → OBGYN 23:06
PROVIDERS: Admitting Provider Specialist; Emergency Provider Emergency Medicine; PCP Family Medicine; Visit Provider Specialist
PROC: (CPT 42960; principal; 2021-03-13 20:45)
DX: J95.830 Postprocedural hemorrhage of a respiratory system organ or structure following a respiratory system procedure (principal)
CPT/HCPCS: 42960; 12345; 85025; 96361; 96374; 96375; 99285; G0378; J0330; J1100; J2250; J2270; J2405; J2704; J2710; J3010; J3301; J3490; J7030

== ENCOUNTER 2022-11-19 17:11 | Emergency (ER) | payer BC, MEDICAID, SELFPAY ==
[2022-11-19 17:21] VITALS: BP 145/102; PULSE 72; RESP 14; TEMP 36.7; O2SAT 99; BMI 26.3
[2022-11-19] MEDS: BUPivacaine 0.5% INJ 10 mL 30 ML INJECTION (17:41)
--- NOTE | 2022-11-19 17:42 | PC.NURSE ---
BUPIVACAINE ADMINISTERED BY DR. MORRIS.
--- NOTE | 2022-11-19 17:51 | ED_ITS ---
HPI - Wound/Laceration General: Chief Complaint: Wound/Laceration Stated Complaint: right hand, thumb lac Time Seen by Provider: 11/19/22 17:13 Source: patient Mode of arrival: ambulatory Limitations: no limitations History of Present Illness: 22-year-old states that he was using a decontamination technician and cut the righ thumb pad off of their right high patient did bring the piece of tissue that was cut off nd. This happened roughly 45 minutes ago. Patient does have pain rates a 5 out of 10 denies any other injuries. Associated symptoms: Denies chills, fever(s), nausea or vomiting Review of Systems Const: Denies: fever(s) or chills ENMT: Denies: throat pain or dental pain Card: Denies: chest pain Resp: Denies: dyspnea GI: Denies: abdominal pain, nausea, vomiting or diarrhea Musc: Reports: extremity pain; Denies: neck pain or back pain Skin/Breast: Denies: rash Neuro: Denies: headache(s) PFS ED PFSH: Medical History Irregular menses No pertinent past medical history neg dx- htn,dm,thyroid,dvt/pe PCP: Dr. Brown Surgical History History of tonsillectomy (~03/07/21) had to have a second surgery a week after the first surgery [place] teeth removed Family History Father Hypertension Family/Other Cancer MGGAunt Denies family history of Diabetes Family history of premature coronary artery disease Stroke Social History Smoking and tobacco status: never smoked Substance/Drug Use: never Physical Exam Const: COMMON NORMALS: no acute distress HENMT: COMMON NORMALS: normocephalic and atraumatic HEAD & SCALP: normocephalic and atraumatic Eye: COMMON NORMALS: conjunctivae normal CONJUNCTIVA: Yes conjunctivae normal Neck/C-Spine: COMMON NORMALS: supple Chest: COMMONS NORMALS: normal inspection of the chest Resp: COMMON NORMALS: normal respiratory effort Extremity: NARRATIVE EXTREMITY EXAM: Patient has a laceration to distal right thumb where it did cut a piece of the skin off Procedures Laceration Laceration 1: Site: hand Side (If applicable): right Size (cm): 3 Description: other (flap of skin) Local Anesthetic: bupivacaine 0.5% Amount of anesthesia used (mL): 6 Pre-repair: wound explored and irrigated extensively Skin layer closed with: nylon Size (cm): 6-0 Number of sutures: 6 Course Vital Signs: Vital signs: Vital Signs Temperature 98.1 F 11/19/22 17:21 Pulse Rate 72 11/19/22 17:21 Respiratory Rate 14 11/19/22 17:21 Blood Pressure 145/102 11/19/22 17:21 Pulse Oximetry 99 11/19/22 17:21 Oxygen Delivery Me thod Room Air 11/19/22 17:21 MDM - Wound/Laceration Medical Decision Making Patient presents here with laceration to right thumb did cut a flap of skin just off the tip of the thumb did bring then the flap skin was able to suture that flap back on. Did inform him that there is a good chance that that flap of skin still may and fall off patient is to have suture removal in 7 days return if any signs of infection they understand agree to plan Discharge Plan Discharge Patient Disposition: Home Clinical Impression: Laceration Condition: Stable Prescriptions: No Action testosterone undecanoate 750 mg/3 mL (250 mg/mL) solution IM Discharge Orders: Discharge ED (Routine); Ordered 11/19/22 Ordered By: Navid Mason Discharge Diet: Advance as tolerated Discharge Activity: Resume usual activity Patient Instructions: Care For Your Stitches (ED) Activity Restrictions/Additional Instructions: suture removal in 7 days Coding Level of Care Code ED Ad Taker for Nora Anna
[2022-11-19] MEDS: HYDROcodone-acetaminophen 7.5-325 mg Tablet 1 TAB PO (18:06)
--- NOTE | 2022-11-20 15:31 | DCPLANNER ---
manager meeting called patient due to no primary care physician - patient stated that he sees Dr. Brown
== END 2022-11-19 18:35 | disposition home or self-care (01) ==
PROVIDERS: Emergency Provider Emergency Medicine; PCP Family Medicine
DX: S61.011A Laceration without foreign body of right thumb without damage to nail, initial encounter (principal); W31.89XA Contact with other specified machinery, initial encounter; Y93.G1 Activity, food preparation and clean up
CPT/HCPCS: 12002; 99284; J3490

== ENCOUNTER → 2023-03-25 15:37 | Outpatient (BNVA) | payer OTHER, BC, MEDICAID, SELFPAY | PROVIDERS: PCP Family Medicine; Visit Provider Nurse Practitioner Women's Health | DX: Z12.4 Encounter for screening for malignant neoplasm of cervix (principal); Z01.419 Encounter for gynecological examination (general) (routine) without abnormal findings | CPT/HCPCS: 88175 ==

== ENCOUNTER → 2023-05-20 16:06 | Outpatient (BNVA) | payer OTHER, BC, MEDICAID, SELFPAY | PROVIDERS: PCP Family Medicine; Visit Provider Emergency Medicine | DX: R50.9 Fever, unspecified (principal) | CPT/HCPCS: 87400 ==

== ENCOUNTER → 2023-06-11 14:56 | Outpatient (BNVA) | payer OTHER, BC, MEDICAID, SELFPAY | PROVIDERS: PCP Family Medicine; Visit Provider Nurse Practitioner Women's Health | DX: R87.619 Unspecified abnormal cytological findings in specimens from cervix uteri (principal); R87.610 Atypical squamous cells of undetermined significance on cytologic smear of cervix (ASC-US); N95.2 Postmenopausal atrophic vaginitis | CPT/HCPCS: 87624 ==

== ENCOUNTER 2023-07-13 12:08 | Emergency (ER) | payer OTHER, BC, MEDICAID, SELFPAY ==
[2023-07-13 12:14] VITALS: BP 142/91; PULSE 90; RESP 18; TEMP 36.7; O2SAT 100
[2023-07-13 12:24] LABS: Basophils % 0.6 %; Eosinophils % 0.4 %; Hematocrit 51.3 % (36-47); Lymphocytes # 3.1 10^3/uL (0.8-4.8); Lymphocytes % 43.2 %; Mean Corpuscular HGB Conc 34.3 g/dL (30-55); Mean Corpuscular Hemoglobin 31.2 pg (27-33); Mean Corpuscular Volume 90.8 fl (85-98); Mean Platelet Volume 9.6 fL (7.4-10.4); Monocytes # 0.7 10^3/uL (0.2-0.9); Monocytes % 9.3 %; Neutrophils # 3.31 10^3/uL (1.8-7.7); Neutrophils % 46.4 %; Nucleated Red Blood Cells % 0 %; Platelet Count 304 10^3/cmm (157-399); Red Blood Count 5.65 10^6/uL (3.85-5.65); Red Cell Distribution Width 12.8 % (12.1-15.1); White Blood Count 7.13 10^3/uL (3.29-11.43)
[2023-07-13 12:40] LABS: Alanine Aminotransferase 20 U/L (0-33); Albumin Level 4.5 g/dL (3.5-5.2); Alkaline Phosphatase 82 U/L (35-105); Aspartate Amino Transferase 21 U/L (0-32); Blood Urea Nitrogen 14 mg/dL (6-20); Calcium 9.2 mg/dL (8.5-10.5); Carbon Dioxide 25 mmol/L (22-29); Chloride 102 mmol/L (98-107); Globulin 2.9 g/dL (1.3-4.6); Glomerular Filtration Rate 67.6 mL/min (90-130); Glucose 89 mg/dL (65-115); Lipase 16 U/L (13-60); Osmolality Calculated 284 mOsm/kg (285-295); Sodium 137 mmol/L (136-145); Total Bilirubin 0.6 mg/dL (0.15-1.2); Total Protein 7.4 g/dL (6.6-8.7)
--- NOTE | 2023-07-13 13:02 | ED_ITS ---
HPI - Abdominal Pain 2 General: Chief Complaint: Abdominal Pain Stated Complaint: walk in sent, abd pain Time Seen by Provider: 07/13/23 13:01 History of Present Illness: 23-year-old female that identifies as a male comes in today for complaints of right lower quadrant abdominal pain. Patient reports symptoms since Friday. Patient reports some lower abdominal pain. Patient was seen first at urgent care and then referred to the ER for further evaluation to rule out appendicitis. Patient denies any nausea or vomiting. Patient reports no diarrhea. Skin is warm and dry color is pink. Review of Systems 2 General: Reports: 10 or more systems reviewed and unremarkable except in HPI and below GI: Reports: abdominal pain PFSH ED 2 PFSH: Medical History Irregular menses No pertinent past medical history neg dx- htn,dm,thyroid,dvt/pe [facility] Surgical History History of tonsillectomy (~03/07/21) had to have a second surgery a week after the first surgery [place] teeth removed Family History Father Hypertension Family/Other Cancer MGGAunt Denies family history of Diabetes Family history of premature coronary artery disease Stroke Social History Smoking and tobacco/nicotine status: former use of tobacco/nicotine Physical Exam 2 Const: COMMON NORMALS: alert HENMT: COMMON NORMALS: normocephalic HEAD & SCALP: normocephalic Neck/C-Spine: COMMON NORMALS: full ROM Chest: COMMONS NORMALS: normal inspection of the chest Resp: COMMON NORMALS: normal respiratory effort and clear to auscultation bilaterally AUSCULTATION: clear to auscultation bilaterally Cardio: COMMON NORMALS: regular rate and regular rhythm RATE: regular rate RHYTHM: regular rhythm GI: COMMON NORMALS: Soft to palpation PALPATION: Yes Soft to palpation and Yes Tenderness to palpation present (GI) Details: RLQ : COMMON NORMALS: Yes no CVA tenderness BLADDER/KIDNEY EXAM: Yes no CVA tenderness Back/Pelvis: COMMON NORMALS: no CVA tenderness and thoracic and lumbar spine normal to inspection Extremity: COMMON NORMALS: normal to inspection and no pedal edema Neuro: SENSORIUM/ORIENTATION: Yes alert Skin: COMMON NORMALS: turgor normal GENERAL SKIN EXAM: turgor normal Course 2 Vital Signs: Vital signs: Vital Signs Temperature 98.0 F 07/13/23 12:14 Pulse Rate 67 07/13/23 14:18 Respiratory Rate 16 07/13/23 14:18 Blood Pressure 132/75 07/13/23 14:18 Pulse Oximetry 97 07/13/23 14:18 Oxygen Delivery Me thod Room Air 07/13/23 14:18 MDM - Abdominal Pain Medical Decision Making 23-year-old female comes in today with complaints of right lower quadrant abdominal pain. On exam abdomen soft with some right lower quadrant tenderness. Bowel sounds are active. Vital signs are normal. No CVA tenderness. No edema. Patient appears nontoxic. Differential diagnosis includes constipation, gastroenteritis, colitis, appendicitis, urinary tract infection, renal calculi. Laboratory values noted some mild concentration and hemoglobin hematocrit and mild elevation creatinine 1.0. Believe patient has some mild dehydration. CT scan was performed and noted a right ovarian cyst but no other significant abnormalities. Reviewed exam with patient recommended naproxen and Zofran for pain and discomfort. Encourage plenty of fluids and follow-up with [facility] or primary care. Patient reported understanding. Lab Data 07/13/23 12:18 07/13/23 12:18 Labs/Radiology: Radiology Impressions Abdomen/Pelvis CT 07/13/23 13:03 IMPRESSION: 1. Probable involuting right ovarian corpus luteal cyst. 2. Additional findings, as above. Laboratory Results WBC 7.13 10^3/uL (3.29-11.43) 07/13/23 12:18 RBC 5.65 10^6/uL (3.85-5.65) 07/13/23 12:18 Hgb 17.60 g/dL (11.27-16.99) H 07/13/23 12:18 Hct 51.3 % (36-47) H 07/13/23 12:18 MCV 90.8 fl (85-98) 07/13/23 12:18 MCH 31.2 pg (27-33) 07/13/23 12:18 MCHC 34.3 g/dL (30-55) 07/13/23 12:18 RDW 12.8 % (12.1-15.1) 07/13/23 12:18 Plt Count 304 10^3/cmm (157-399) 07/13/23 12:18 MPV 9.6 fL (7.4-10.4) 07/13/23 12:18 Neut % (Auto) 46.4 % 07/13/23 12:18 Lymph % (Auto) 43.2 % 07/13/23 12:18 [place] % (Auto) 9.3 % 07/13/23 12:18 Eos % (Auto) 0.4 % 07/13/23 12:18 Baso % (Auto) 0.6 % 07/13/23 12:18 Neut # (Auto) 3.31 10^3/uL (1.8-7.7) 07/13/23 12:18 Lymph # (Auto) 3.1 10^3/uL (0.8-4.8) 07/13/23 12:18 Bowman # (Auto) 0.7 10^3/uL (0.2-0.9) 07/13/23 12:18 Eos # (Auto) 0.0 10^3/uL (0.0-0.8) 07/13/23 12:18 Baso # (Auto) 0.0 10^3/uL (0.0-0.1) 07/13/23 12:18 Nucleated RBC % (auto) 0 % 07/13/23 12:18 Nucleated RBCs # 0.0 /100WBC 07/13/23 12:18 Sodium 137 mmol/L (136-145) 07/13/23 12:18 Potassium 4.0 mmol/L (3.5-5.1) 07/13/23 12:18 Chloride 102 mmol/L (98-107) 07/13/23 12:18 Carbon Dioxide 25 mmol/L (22-29) 07/13/23 12:18 Anion Gap 14.0 (5-19) 07/13/23 12:18 BUN 14 mg/dL (6-20) 07/13/23 12:18 Creatinine 1.0 mg/dL (0.5-0.9) H 07/13/23 12:18 GFR Calculation 67.6 mL/min (90-130) L 07/13/23 12:18 Glucose 89 mg/dL (65-115) 07/13/23 12:18 Calculated Osmolality 284 mOsm/kg (285-295) L 07/13/23 12:18 Calcium 9.2 mg/dL (8.5-10.5) 07/13/23 12:18 Total Bilirubin 0.6 mg/dL (0.15-1.2) 07/13/23 12:18 AST 21 U/L (0-32) 07/13/23 12:18 ALT 20 U/L (0-33) 07/13/23 12:18 Alkaline Phosphatase 82 U/L (35-105) 07/13/23 12:18 Total Protein 7.4 g/dL (6.6-8.7) 07/13/23 12:18 Albumin 4.5 g/dL (3.5-5.2) 07/13/23 12:18 Globulin 2.9 g/dL (1.3-4.6) 07/13/23 12:18 Lipase 16 U/L (13-60) 07/13/23 12:18 HCG, Qual Negative (Negative) 07/13/23 12:18 Urine Color Yellow (Yellow) 07/13/23 13:30 Urine Appearance Clear (CLEAR) 07/13/23 13:30 Urine pH 6 (5-7) 07/13/23 13:30 Ur Specific [place] 1.015 (1.005-1.030) 07/13/23 13:30 Urine Protein Neg (Negative) 07/13/23 13:30 Urine Glucose (UA) Norm (Normal) 07/13/23 13:30 Urine Ketones 1+ (Negative) H 07/13/23 13:30 Urine Blood Neg (Negative) 07/13/23 13:30 Urine Nitrate Negative (Negative) 07/13/23 13:30 Urine Bilirubin Neg (Negative) 07/13/23 13:30 Urine Urobilinogen Norm mg/dL (Negative) 07/13/23 13:30 Ur Leukocyte Esterase Negative (Negative) 07/13/23 13:30 All radiology interpretation(s) finalized by discharge Discharge Plan Discharge Patient Disposition: Home Clinical Impression: Ovarian cyst Qualifiers: Laterality: right Qualified Code(s): N83.201 - Unspecified ovarian cyst, right side Condition: Stable Prescriptions: New naproxen 500 mg tablet 500 mg PO BID PRN (Reason: pain) Qty: 20 0RF ondansetron 4 mg tablet,disintegrating 4 mg PO Q8H PRN (Reason: nausea and vomiting) Qty: 10 0RF No Action testosterone undecanoate 750 mg/3 mL (250 mg/mL) solution 0.3 ml IM .once weekly fluticasone propionate [Flonase Allergy Relief] 50 mcg/actuation spray,suspension 2 spray intranasal BID Qty: 16 0RF Rx Instructions: administer into each nostril ibuprofen 800 mg tablet 800 mg PO Q8H PRN (Reason: pain) Qty: 45 0RF estradiol [Estrace] 0.01 % (0.1 mg/gram) cream 1 g vaginal .2-3 times weekly Qty: 42.5 0RF Rx Instructions: space out doses Discharge Orders: Discharge ED (Routine); Ordered 07/13/23 Ordered By: Jamie Arthur Referrals: Andrez Brown DO [Primary Care Provider] - Discharge Diet: Usual diet Discharge Activity: Increase activity as tolerated Patient Instructions: Ovarian Cyst (ED) Activity Restrictions/Additional Instructions: Home and rest. Strict plenty water and fluids. Activity as tolerated. Follow- up with primary care or [facility] for further evaluation and treatment of ovarian cyst. Most often these resolve on their own. But can cause pain and discomfort. Naproxen this was recommended usually along with [id number] acetaminophen. Drink plenty of water with medications. Return to ER for worsening symptoms such as high fever, uncontrolled pain, or new concerns. Coding Level of Care Code ED Manager Social Work for Nora Anna
--- NOTE | 2023-07-13 13:03 | CTR_ITS ---
PROCEDURE INFORMATION: Exam: CT Abdomen And Pelvis With Contrast Exam date and time: 07/13/2023 1:47 PM Age: 23 years old Clinical indication: Abdominal pain; Localized; Right lower quadrant (rlq); Additional info: Diffuse abd pain localizing to right lower quad TECHNIQUE: Imaging protocol: Computed tomography of the abdomen and pelvis with contrast. Axial, coronal and sagittal reformatted images were created and reviewed. Radiation optimization: All CT scans at this facility use at least one of these dose optimization techniques: automated exposure control; mA and/or kV adjustment per patient size (includes targeted exams where dose is matched to clinical indication); or iterative reconstruction. Contrast material: OMNI 350; Contrast volume: 100 ml; Contrast route: INTRAVENOUS (IV); COMPARISON: CR XR chest 1V portable [id number] 03/12/2021 11:33 PM RADIATION DOSE METRICS: Total DLP (mGy-cm): 511.57 FINDINGS: Liver: Unremarkable. Gallbladder and bile ducts: No radiodense gallstones. No biliary ductal dilatation. Pancreas: Unremarkable. Spleen: Unremarkable. Adrenal glands: Normal. No mass. Kidneys and ureters: No mass. No radiodense calculi. No hydronephrosis. Stomach and bowel: No bowel wall thickening. No obstruction. No pneumatosis. Appendix: Normal. Intraperitoneal space: Trace nonspecific free pelvic fluid, likely physiologic. No organized fluid collection. No free air. Vasculature: Unremarkable. No aneurysm. Lymph nodes: No pathologically enlarged lymph nodes. Urinary bladder: Unremarkable as visualized. Reproductive: Probable involuting right ovarian corpus luteal cyst. Bones/joints: No acute osseous abnormality. Soft tissues: Unremarkable. CT/CT abdomen pelvis w con* [id number] IMPRESSION: 1. Probable involuting right ovarian corpus luteal cyst. 2. Additional findings, as above.
[2023-07-13 13:17] LABS: Creatinine Clr Calc Pharmacy 96.1442
[2023-07-13 13:18] LABS: HCG, Serum Qual Negative (Negative)
[2023-07-13] MEDS: sodium chloride 0.9% 1,000 ML 999 ML IV (13:37)
[2023-07-13 13:45] LABS: Add Urine Microscopic? NO; Charge for UA Resulting for Rev
[2023-07-13] MEDS: iohexol 350 mg/mL 500 mL Btl (per mL) IV (13:51)
[2023-07-13 13:55] LABS: Bilirubin Urine Neg (Negative); Blood Urine Neg (Negative); Glucose Urine UA Norm (Normal); Ketones Urine 1+ (Negative); Leukocyte Esterase Urine Negative (Negative); Nitrate Urine Negative (Negative); Protein Urine Neg (Negative); Specific Gravity, Urine 1.015 (1.005-1.030); Urine Appearance Clear (CLEAR); Urine Color Yellow (Yellow); Urobilinogen Urine Norm (Negative); pH Urine 6 (5-7)
[2023-07-13 14:18] VITALS: BP 132/75; PULSE 67; RESP 16; O2SAT 97
[2023-07-13] MEDS: ondansetron 2 mg/ML SDV 2 mL 4 MG IVP (14:25)
[2023-07-13] MEDS: ketorolac 30 mg/mL INJ 15 MG IVP (14:58)
[2023-07-13 15:30] VITALS: BP 136/78; PULSE 72; RESP 16; O2SAT 100
[2023-07-13 15:31] VITALS: BP 136/78; PULSE 72; RESP 16; TEMP 36.7; O2SAT 100
== END 2023-07-13 15:32 | disposition home or self-care (01) ==
PROVIDERS: Emergency Medicine; Emergency Provider Nurse Practitioner Family; PCP Family Medicine
DX: N83.201 Unspecified ovarian cyst, right side (principal); Z87.891 Personal history of nicotine dependence
CPT/HCPCS: 74177; 80053; 81000; 81003; 83690; 84703; 85025; 96361; 96374; 96375; 99285; J1885; J2405; J7030; Q9967

== ENCOUNTER → 2024-02-05 11:50 | Outpatient (BNVA) | payer BC, MEDICAID, OTHER, SELFPAY | PROVIDERS: PCP Family Medicine; Visit Provider Nurse Practitioner Women's Health | DX: R10.2 Pelvic and perineal pain (principal) | CPT/HCPCS: 81000; 87086 ==

== ENCOUNTER → 2024-02-19 13:24 | Outpatient (BNVA) | payer OTHER, BC, MEDICAID, SELFPAY | PROVIDERS: PCP Family Medicine; Visit Provider Nurse Practitioner Women's Health | DX: R10.2 Pelvic and perineal pain (principal) | CPT/HCPCS: 76830 ==

== ENCOUNTER → 2024-02-29 17:00 | Outpatient (BNVA) | payer OTHER, BC, MEDICAID, SELFPAY | PROVIDERS: PCP Family Medicine | DX: J02.9 Acute pharyngitis, unspecified (principal) | CPT/HCPCS: 87071; 87880 ==

== ENCOUNTER → 2024-04-14 14:34 | Outpatient (BNVA) | payer OTHER, BC, MEDICAID, SELFPAY | PROVIDERS: PCP Family Medicine; Visit Provider Nurse Practitioner Women's Health | DX: R87.810 Cervical high risk human papillomavirus (HPV) DNA test positive (principal) | CPT/HCPCS: 76830 ==

== ENCOUNTER → 2024-05-28 12:37 | Outpatient (BNVA) | payer OTHER, BC, MEDICAID, SELFPAY | PROVIDERS: PCP Family Medicine; Visit Provider Nurse Practitioner Women's Health | DX: Z01.419 Encounter for gynecological examination (general) (routine) without abnormal findings (principal); R87.810 Cervical high risk human papillomavirus (HPV) DNA test positive; F64.0 Transsexualism; Z79.899 Other long term (current) drug therapy | CPT/HCPCS: 87624 ==